=== PATIENT | female | born 1975 | race Caucasian/White ===

== ENCOUNTER → 2024-04-20 | Day surgery (SDC) | payer MEDICAID ==
[~2024-04-20] VITALS: Ht 144.8 cm; Wt 91.6 kg
[~2024-04-20] MED LIST: ASPI-1153 PO; BUPIVACAINE HCL/PF 0.5% (5MG/ML) 10ML ONE; CLINDAMYCIN 600 MG IV ONE; CLINDAMYCIN 900MG PREMIX 50 ML IV NR; DEXAMETHASONE 4MG/ML 1ML VIAL ONE; FENTANYL CITRATE/PF 50MCG/ML 2ML VIAL ONE; GLYCOPYRROLATE 0.2 MG/ML 2ML VIAL ONE; HYDROMORPHONE HCL/PF 2MG/ML INJ IV PRN; IBUP-2030 PO; LABETALOL 5MG/ML 4ML INJ IV PRN; MEPERIDINE HCL/PF 25MG/ML CPJ IV PRN; MIDAZOLAM HCL 2 MG/2 ML VIAL ONE; NEOSTIGMINE METHYLSULFATE 1MG/ML 10 ML VIAL ONE; OMEP20CA14 PO; ONDANSETRON HCL 4MG/2ML INJ IV PRN; ONDANSETRON HCL 4MG/2ML INJ ONE; PROPOFOL 200MG/20ML VIAL IV ONE; ROCURONIUM BROMIDE 10MG/ML VIAL 5ML IV ONE; SKIN ADHESIVE 0.7 GM EA TOP ONE; SUGAMMADEX SODIUM 200 MG/2 ML VIAL IV NR
[2024-04-20 06:37] LABS: UCG SCREEN NEGATIVE
[2024-04-20] MEDS: LACTATED RINGERS 1,000 ML IV SCH (07:50)
[2024-04-20 12:10] VITALS: BP 119/73; PULSE 67; RESP 16
[2024-04-20] MEDS: ACETAMINOPHEN WITH CODEINE 300/30MG TABLET PO NR (12:10)
== END | disposition home or self-care (01) ==
LOC: OR 06:27
PROVIDERS: ATTEND Surgery
DX: K80.10 Calculus of gallbladder with chronic cholecystitis without obstruction (principal); E78.00 Pure hypercholesterolemia, unspecified; Z79.899 Other long term (current) drug therapy; Z98.890 Other specified postprocedural states; Z98.51 Tubal ligation status; Z79.82 Long term (current) use of aspirin; Z88.0 Allergy status to penicillin
CPT/HCPCS: 47562; 93005; 81025; 82962; 88304; J3010; J3490 ×5; J1100; J2250; J2405; J2704; J7030; J2710